=== PATIENT | male | born 1975 | race Hispanic/Latino ===

== ENCOUNTER → 2021-01-15 10:38 | Outpatient (CLI) | payer OTHER, SELFPAY ==
[2021-01-15 14:21] LABS: COVID19 -Nasal RAPID Negative (Negative)
== END ==
PROVIDERS: Visit Provider Physician Assistant
DX: Z20.822 Contact with and (suspected) exposure to COVID-19 (principal)
CPT/HCPCS: 87635

== ENCOUNTER 2021-01-17 09:58 | Day surgery (SDC) | payer OTHER, SELFPAY ==
[2021-01-15 14:47] VITALS: BMI 27.1
[2021-01-17] VITALS (9 sets, daily range): BP systolic 141–167; BP diastolic 78–96; PULSE 76–94; RESP 12–22; TEMP 36.4–36.9; O2SAT 10–99; BMI 27.1
--- NOTE | 2021-01-17 | DI.RAD.S_ITS ---
PROCEDURE: XR LUMBAR SPINE 2-3V INDICATIONS: L5-S1 DISCECTOMY TECHNIQUE: 3 views of the lumbar spine were acquired. COMPARISON: [facility] Outside Film, MR, MR LUMBAR SPINE WITHOUT CONTRAST, 06/29/2020, 13:44. FINDINGS: Fluoroscopic intraoperative views of L5-S1. IMPRESSION: Intraoperative fluoroscopic views were obtained. Dictated by: Virgil Vasquez M.D. on 01/17/2021 at 17:06 Approved by: Virgil Vasquez M.D. on 01/17/2021 at 17:07
[2021-01-17] MEDS: LACTATED RINGERS 1,000 ML 42 ML IV (11:27)
--- NOTE | 2021-01-17 12:25 | PM.PREOP ---
Pre-operative Note COVID-19 COVID-19 status: Negative Result date/Date tested (Pos, Neg/Pending): 01/15/21 Interval Note History & Physical reviewed/Exam performed by Physician: Yes Changes to H&P: No
[2021-01-17] MEDS: CEFAZOLIN 1 GM VIAL 2 GM IV (13:25)
--- NOTE | 2021-01-17 13:43 | SUR.OPER ---
Prone on spine table, head in foam head support, padded chest and pelvic supports, gel pad at knees, lower legs supported by pillows, gel pad between heels; nipples, genitalia and toes free of pressure, arms secured on foam padded arm boards at <90 degrees abduction. Tape over blanket at thigh secured to table.
[2021-01-17] MEDS: methylPREDNISolone acet DEPO 40 MG/ML VIAL INJ (13:53)
[2021-01-17] MEDS: BUPIVACAINE 0.25% (PF) VIAL 30 ML INJ (13:54)
[2021-01-17] MEDS: EPINEPHrine 1 MG/ML 0.15 MG SUBCUT (13:56)
--- NOTE | 2021-01-17 14:09 | P.OP_ITS ---
Operative Date/Time/Diagnoses Date of procedure: 01/17/21 Time of procedure: 13:00 Pre-op diagnosis: 1. L5-S1 disc herniation 2. L5-S1 radiculopathy Post-op diagnosis: same Procedure & Clinicians Procedure: 1. L5-S1 left microdiscectomy 2. Utilization of microsurgical technique and operating loupes Same procedure as scheduled: Yes Indications: Patient has been having chronic back pain and worsening lumbar radiculopathy. Patient failed multiple conservative management with worsening pain weakness and numbness in her lower extremity. Patient has been having difficulty performing activity of daily living. After discussing risks benefits of treatment options, patient elected proceed with surgery. Surgeon: Kaity Hendricks Police Worker: Piotr Hanna Click Yes if Unassisted: No Anesthesia Type: General Operative Notes Closure Type: primary Specimen(s): none sent Estimated Blood Loss (mL): 10 Procedure in detail: Patient was seen in the preoperative area. Risks and benefits of the surgery was discussed with the patient. Informed consent was obtained from the patient and placed in the chart. Surgical site was marked. Patient was taken to the operative room. General anesthesia was administered. Prophylactic antibiotic was given to the patient less than 30 min before the incision was made. Patient was placed into a prone position on the Johnson table. Patient's back was then prepped and draped in the sterile fashion. Time- out was performed at this time. Using AP and lateral C-arm imaging the interval between L5-S1 was identified and marked on patient's back. A 1 inch incision 1 in from midline was made on the left side. The fascia was incised in line with skin incision. Globus MARS re tractors was placed inside the incision and docked onto the L5 lamina. Using microsurgical technique and operating microscope, a L5 laminotomy was performed using a Kerrison rongeur. Liagamentum flavum was resected at the site of the laminotomy. The disc space at L5-S1 was identified. Microdiscectomy was performed by incising the annulus with #11 blade. Microcurettes and pituitary was used to removed herniated disc fragments of disc from the epidural space. After the microdiskectomy was completed, the area medial lateral superior and inferior to the area of the microdiskectomy was inspected and explored using a micro curette. No other impinging structure was identified. The wound was then irrigated with sterile normal saline. 40 mg Depo-Medrol was placed into the epidural space. The deep fascia was closed with 1-0 Vicryl. The subcutaneous tissue was closed with 2-0 Vicryl. The skin was closed with skin nadine. Patient tolerated the procedure well. There were no complications. Patient was transferred recovery room in stable condition. Complications: none Post-operative Condition: stable Disposition: PACU Plan for aftercare: Discharge to home
[2021-01-17] MEDS: fentaNYL 100 MCG/2 ML INJ IV (14:35)
--- NOTE | 2021-01-17 14:37 | SUR.PHASEI ---
Received to PACU after general anesthesia. Airway patent, self maintained. Report from Jimbo Russell and Dr Gill.
[2021-01-17] MEDS: ACETAMINOPHEN 325 MG TABLET 650 MG PO (14:53)
[2021-01-17] MEDS: OXYCODONE IR 5 MG TABLET PO (14:53)
== END 2021-01-17 16:05 | disposition home or self-care (01) ==
PROVIDERS: Referring Provider Orthopaedic Surgery Orthopaedic Surgery of the Spine; Visit Provider Orthopaedic Surgery Orthopaedic Surgery of the Spine
PROC: (CPT 63030; principal; 2021-01-17 11:45)
DX: M51.16 Intervertebral disc disorders with radiculopathy, lumbar region (principal)
CPT/HCPCS: 63030; 72100; 76000; 82962; J0171; J0690; J1030; J1100; J2405; J2704; J3010